=== PATIENT | male | born 1960 | race Caucasian/White ===

== ENCOUNTER 2017-01-08 16:38 | Emergency (ER) | payer OTHER ==
[~2017-01-08] VITALS: Ht 167.6 cm; Wt 99.9 kg
[~2017-01-08 16:38] MED LIST: ONDA4TAB7 SL
[2017-01-08 16:42] VITALS: Ht 167.6 cm; Wt 99.9 kg
[2017-01-08] MEDS ORDERED: SODIUM CHLORIDE 0.9% 1000ML 1,000 ML IV STA ×3 (16:46→18:30)
[2017-01-08] MEDS ORDERED: KETOROLAC TROMETHAMINE 30 MG/ML VIAL IV STA (16:46)
[2017-01-08] MEDS ORDERED: ONDANSETRON INJ 2 MG/ML 2 ML VIAL IV STA (16:46)
[2017-01-08] MEDS ORDERED: RANI300T2 PO ×2 (16:51)
[2017-01-08 17:15] LABS: BASO % 0.1 %; BASO ABS # 0.01 K/uL (0-0.2); COMPLETE YES; EOS % 0.4 %; HEMATOCRIT 48.1 % (42-52); IG% 0.3 %; LYMPH % 7.9 %; MEAN CELL VOLUME 89.2 fL (80-100); MEAN CORPUSCULAR HEMOGLOBIN 31.9 pg (25-34); MEAN CORPUSCULAR HGB CONC 35.8 g/dl (32-36); MEAN PLATELET VOLUME 9.8 fL (7.4-10.4); MONO % 11.4 %; NEUT % 79.9 %; PLATELET COUNT 216 K/uL (130-400); RED BLOOD COUNT 5.39 M/uL (4.7-6.1)
[2017-01-08 17:34] LABS: BUN/CREATININE RATIO 12.3 (10-20); CREATININE 1.4 mg/dl (0.60-1.40); POTASSIUM 3.5 mmol/L (3.5-5.1)
[2017-01-08 17:36] VITALS: TEMP 36.9
[2017-01-08 17:41] LABS: MAGNESIUM 2.2 mg/dl (1.8-2.4)
--- NOTE | 2017-01-08 18:01 | DIAGNOSTIC IMAGING REPORT ---
PA CHEST RADIOGRAPH AND UPRIGHT AND SUPINE AP RADIOGRAPHS OF THE ABDOMEN CLINICAL HISTORY: Vomiting and diarrhea. COMPARISON STUDY: Chest radiograph and CT of the abdomen and pelvis December 07, 2014. FINDINGS: Lung volumes are at the lower limits of normal. There is no pneumothorax or pleural effusion. Pulmonary vascularity is normal. There is no consolidation. Cardiomediastinal silhouette is stable. There is no free air. Numerous loops of mildly dilated small bowel are noted. Multiple small bowel air-fluid levels are noted on the upright projections. There is scattered colonic gas. Pelvic calcifications likely reflect phleboliths. IMPRESSION: 1. Multiple loops of mildly dilated small bowel. The findings favor a partial small bowel obstruction although an ileus could appear similar. 2. No free air. 3. No acute cardiopulmonary findings. Electronically signed by: Dave Bunch M.D. 01/08/2017 5:59 PM Dictated Date/Time: 01/08/2017 5:56 PM
[2017-01-08] MEDS ORDERED: ONDA4TAB10 SL ×3 (18:29→22:42)
[2017-01-08] MEDS ORDERED: ONDANSETRON HOME PACK 4MG OD TAB PO ONE (18:30)
[2017-01-08 18:31] LABS: URINE APPEARANCE CLOUDY (CLEAR); URINE COLOR DK YELLOW; URINE NITRITE NEG (NEG); URINE SPECIFIC GRAVITY 1.029 (1.000-1.030); UROBILINOGEN NEG (NEG); ZZUR CULT IF INDIC CLEAN CATCH YES
[2017-01-08 18:35] LABS: MANUAL MICROSCOPIC REQUIRED? NO; REVIEW REQ? YES; URINE BILIRUBIN NEG (NEG)
[2017-01-08 18:43] LABS: URINE MUCUS PRESENT (NONE PRSENT)
[2017-01-08 19:19] VITALS: BP 128/77; PULSE 80; O2SAT 95
--- NOTE | 2017-01-09 23:58 | EMERGENCY ROOM VISIT NOTE ---
History Report prepared by Cheri: Rhonda Knapp Under the Supervision of: Dr. Karey Evans M.D. First contact with patient: 16:46 Chief Complaint: GI ASSESSMENT Stated Complaint: NAUSEA,VOMITING,DIARRHEA History of Present Illness The patient is a 57 year old male who presents to the Emergency Room with complaints of persistent vomiting starting 2 days ago. He had sudden onset of nausea, vomiting, and diarrhea. He thought the symptoms will resolve after 1 day. Two of the residents at his work place had similar symptoms. Their symptoms started to resolve after 3 days. He is unable to keep any food or water down. He denies any fever, chills, abdominal pain, body aches, or blood in his diarrhea. He denies any other medical problems. Source of History: patient Onset: 2 days ago Position: other (global) Quality: other (vomiting) Timing: other (persistent) Associated Symptoms: + diarrhea, + nausea, No abdominal pain, No chills, No fevers, No hematochezia Note: Pt denies body aches. Review of Systems See HPI for pertinent positives & negatives. A total of 10 systems reviewed and were otherwise negative. Past Medical & Surgical Medical Problems: (1) Ileus (2) Kidney stones (3) Nausea vomiting and diarrhea Surgical Problems: (1) S/P tonsillectomy and adenoidectomy Family History Cancer Diabetes mellitus FH: heart disease FHx: gallbladder disease Hypertension Kidney disease Kidney stones Social History Smoking Status: Never Smoker Alcohol Use: none Marital Status: single Housing Status: lives alone Occupation Status: employed Current/Historical Medications Scheduled PRN Ondasetron Odt (Zofran Odt), 4 MG SL Q6H PRN for Nausea or Vomiting Ranitidine Hcl (Zantac), 300 MG PO DAILY PRN for STOMACH UPSET Allergies Coded Allergies: No Known Allergies (Unverified , 01/08/17) Physical Exam Vital Signs Date Time Temp Pulse Resp B/P Pulse Ox O2 Delivery O2 Flow Rate FiO2 01/08/17 19:19 80 20 128/77 95 01/08/17 18:04 84 130/77 94 01/08/17 17:36 36.9 85 18 01/08/17 17:05 91 01/08/17 16:42 114 24 140/91 96 Room Air Physical Exam Vital signs reviewed. General: Well-appearing, in no significant distress. HEENT: No scleral icterus, PERRLA, neck supple. Atraumatic. Cardiovascular: Regular rate and rhythm, no extra sounds. Pulmonary: Clear to auscultation bilaterally, normal work of breathing. Abdomen: Soft, mildly distended abdomen with diffuse tenderness, no rebound, no guarding, diffuse positive bowel sounds. Musculoskeletal: Atraumatic, no peripheral edema. Neurologic: Patient awake alert and oriented x 3, full strength in all 4 extremities. Cranial nerves 2 through 12 grossly intact. Skin: Warm, dry, no rash Medical Decision & Procedures Laboratory Results 01/08/17 17:00 Red Blood Count 5.39, Mean Corpuscular Volume 89.2, Mean Corpuscular Hemoglobin 31.9, Mean Corpuscular Hemoglobin Concent 35.8, Mean Platelet Volume 9.8, Neutrophils (%) (Auto) 79.9, Lymphocytes (%) (Auto) 7.9, Monocytes (%) (Auto) 11.4, Eosinophils (%) (Auto) 0.4, Basophils (%) (Auto) 0.1, Neutrophils # (Auto ) 6.07, Lymphocytes # (Auto) 0.60, Monocytes # (Auto) 0.87, Eosinophils # (Auto ) 0.03, Basophils # (Auto) 0.01 01/08/17 17:00 Test 01/08/17 00:00 01/08/17 17:00 Stool Occult Blood NEGATIVE (NEGATIVE) White Blood Count 7.60 K/uL (4.8-10.8) Red Blood Count 5.39 M/uL (4.7-6.1) Hemoglobin 17.2 g/dL (14.0-18.0) Hematocrit 48.1 % (42-52) Mean Corpuscular Volume 89.2 fL (80-100) Mean Corpuscular Hemoglobin 31.9 pg (25-34) Mean Corpuscular Hemoglobin Concent 35.8 g/dl (32-36) Platelet Count 216 K/uL (130-400) Mean Platelet Volume 9.8 fL (7.4-10.4) Neutrophils (%) (Auto) 79.9 % Lymphocytes (%) (Auto) 7.9 % Monocytes (%) (Auto) 11.4 % Eosinophils (%) (Auto) 0.4 % Basophils (%) (Auto) 0.1 % Neutrophils # (Auto) 6.07 K/uL (1.4-6.5) Lymphocytes # (Auto) 0.60 K/uL (1.2-3.4) Monocytes # (Auto) 0.87 K/uL (0.11-0.59) Eosinophils # (Auto) 0.03 K/uL (0-0.5) Basophils # (Auto) 0.01 K/uL (0-0.2) RDW Standard Deviation 43.3 fL (36.4-46.3) RDW Coefficient of Variation 13.3 % (11.5-14.5) Immature Granulocyte % (Auto) 0.3 % Immature Granulocyte # (Auto) 0.02 K/uL (0.00-0.02) Urine Color DK YELLOW Urine Appearance CLOUDY (CLEAR) Urine pH 5.0 (4.5-7.5) Urine Specific [place] 1.029 (1.000-1.030) Urine Protein 1+ (NEG) Urine Glucose (UA) NEG (NEG) Urine Ketones TRACE (NEG) Urine Occult Blood NEG (NEG) Urine Nitrite NEG (NEG) Urine Bilirubin NEG (NEG) Urine Urobilinogen NEG (NEG) Urine Leukocyte Esterase NEG (NEG) Urine WBC (Auto) 1-5 /hpf (0-5) Urine RBC (Auto) 0-4 /hpf (0-4) Urine Hyaline Casts (Auto) 10-30 /lpf (0-5) Urine Epithelial Cells (Auto) 10-20 /lpf (0-5) Urine Bacteria (Auto) NEG (NEG) Urine Pathogenic Casts /lpf (0) Urine Mucus PRESENT (NONE PRSENT) Urine Yeast (Auto) (NONE PRSENT) Anion Gap 13.0 mmol/L (3-11) Est Creatinine Clear Calc Drug Dose 64.4 ml/min Estimated GFR () 64.2 Estimated GFR (Non- 55.4 BUN/Creatinine Ratio 12.3 (10-20) Calcium Level 9.0 mg/dl (8.5-10.1) Magnesium Level 2.2 mg/dl (1.8-2.4) Total Bilirubin 1.0 mg/dl (0.2-1) Direct Bilirubin 0.2 mg/dl (0-0.2) Aspartate Amino Transf (AST/SGOT) 25 U/L (15-37) Alanine Aminotransferase (ALT/SGPT) 62 U/L (12-78) Alkaline Phosphatase 93 U/L (45-117) Total Protein 8.0 gm/dl (6.4-8.2) Albumin 4.4 gm/dl (3.4-5.0) Lipase 126 U/L (73-393) Laboratory results per my review. Medications Administered Medications (Trade) Dose Ordered Sig/Malean Route Start Time Stop Time Status Last Admin Dose Admin Sodium Chloride 1,000 ml @ 999 mls/hr Q1H1M STAT IV 01/08/17 16:46 01/08/17 17:46 DC 01/08/17 17:14 999 MLS/HR Sodium Chloride (Nss 1000ml) 1,000 ml @ 200 mls/hr Q5H STAT IV 01/08/17 16:46 01/08/17 18:31 DC 01/08/17 17:15 200 MLS/HR Ketorolac Tromethamine (Toradol Inj) 30 mg NOW STAT IV 01/08/17 16:46 01/08/17 16:48 DC 01/08/17 17:13 30 MG Ondansetron HCl (Zofran Inj) 4 mg NOW STAT IV 01/08/17 16:46 01/08/17 16:48 DC 01/08/17 17:13 4 MG Ondansetron HCl (ZOFRAN ODT 4MG Home Pack) 1 homepack UD ONCE PO 01/08/17 18:30 01/08/17 18:31 DC 01/08/17 19:17 1 HOMEPACK ED Course 1649: Past medical records reviewed. The patient was evaluated in room B6. A complete history and physical examination was performed. 1646: Zofran Inj 4 mg IV, Toradol Inj 30 mg IV, NSS 1000 ml @ 200 mls/hr IV, NSS 1000 ml @ 999 mls/hr IV. Medical Decision Differential diagnosis: Etiologies such as gastroenteritis, food borne illness, infections, appendicitis , diverticulitis, inflammatory bowel disease, obstruction, GI bleed, biliary pathology, as well as others were entertained. This patient was evaluated and appeared to be in some discomfort. IV access was obtained and laboratory work was drawn. The patient was placed on the registered nurse cardiac. Physical examination is concerning for a mildly distended abdomen. He has some tympany to percussion. Abdominal x-ray series was obtained and reveals an ileus versus partial SBO. Patient's laboratory work is fairly unrevealing. The patient was feeling much improved after IV Toradol, IV Zofran and IV normal saline solution 2 L. Patient was discharged with a Zofran ODT home pack and a prescription was sent to his pharmacy. He is asked to follow-up with his primary care physician this week and to return to the ER for worsening of symptoms or any medical concerns. Impression Primary Impression: Nausea vomiting and diarrhea Additional Impression: Ileus Scribe Attestation The scribe's documentation has been prepared under my direction and personally reviewed by me in its entirety. I confirm that the note above accurately reflects all work, treatment, procedures, and medical decision making performed by me. Departure Information Referrals No Doctor, Assigned (PCP) Patient Instructions [facility] Problem Qualifiers
== END 2017-01-08 19:20 | disposition home or self-care (01) ==
LOC: C.EDB 16:39
DX: R11.2 Nausea with vomiting, unspecified (principal); R19.7 Diarrhea, unspecified; K56.7 Ileus, unspecified; Z90.89 Acquired absence of other organs; Z83.3 Family history of diabetes mellitus; Z82.49 Family history of ischemic heart disease and other diseases of the circulatory system; Z84.1 Family history of disorders of kidney and ureter

== ENCOUNTER 2017-01-08 21:41 | Inpatient (IN) | payer OTHER ==
[~2017-01-08] VITALS: Ht 167.6 cm; Wt 100.5 kg
[~2017-01-08 21:41] MED LIST changes: +ONDA4TAB10 SL; +RANI300T2 PO
[2017-01-08] MEDS ORDERED: PROMETHAZINE HCL INJ 6.25 MG in SODIUM CHLORIDE 0.9% 50ML 50 ML IV STA (22:02)
[2017-01-08] MEDS ORDERED: SODIUM CHLORIDE 0.9% 500ML 500 ML IV STA (22:02)
[2017-01-08] MEDS ORDERED: ONDANSETRON INJ 2 MG/ML 2 ML VIAL IV STA (22:02)
[2017-01-08] MEDS ORDERED: SODIUM CHLORIDE 0.9% 1000ML 1,000 ML IV STA (22:02)
--- NOTE | 2017-01-08 22:08 | EMERGENCY ROOM VISIT NOTE ---
History Report prepared by Cheri: Obey Renteria Under the Supervision of: Dr. Manuelito Benitez M.D. First contact with patient: 21:59 Chief Complaint: ABDOMINAL PAIN Stated Complaint: ABD PAIN,PARTIAL BOWEL OBSTRUCTION,REVISIT Nursing Triage Summary: just seen in ed and refused admission because " i felt better." c/o nausea and diarrhea. History of Present Illness The patient is a 57 year old male who presents to the Emergency Room with complaints of worsening abdominal pain that began two days ago. The patient was seen in the ER earlier today for this similar issue. They recommended that he stay in the hospital for a possible small bowel obstruction, but they were okay with him going home secondary to him feeling better after Zofran and fluids. His laboratory results that were taken at 1700 today showed: Normal white count , normal hemoglobin, unremarkable chemistry profile, negative lipase, urine negative for infection, stool negative for blood, stool negative for C-Diff. His x-ray was consistent with an Ileus or a partial small bowel obstruction. He is experiencing significant belching and a swollen feeling in his abdomen. He rates his pain a 4/10 in severity, but he says his nausea is the worst symptom. He denies any fevers. Source of History: patient Onset: two days ago Position: abdomen Symptom Intensity: 4/10 Quality: sharp Timing: worsening Associated Symptoms: + diarrhea, + nausea, No fevers Note: He is having belching and a swollen feeling in his abdomen. Review of Systems See HPI for pertinent positives & negatives. A total of 10 systems reviewed and were otherwise negative. Past Medical & Surgical Medical Problems: (1) Ileus (2) Kidney stones (3) Nausea vomiting and diarrhea Surgical Problems: (1) S/P tonsillectomy and adenoidectomy Family History Cancer Diabetes mellitus FH: heart disease FHx: gallbladder disease Hypertension Kidney disease Kidney stones Social History Smoking Status: Never Smoker Alcohol Use: none Marital Status: single Housing Status: lives alone Occupation Status: employed Current/Historical Medications Scheduled PRN Ondasetron Odt (Zofran Odt), 4 MG SL Q6H PRN for Nausea or Vomiting Ranitidine Hcl (Zantac), 300 MG PO DAILY PRN for STOMACH UPSET Allergies Coded Allergies: No Known Allergies (Unverified , 01/08/17) Physical Exam Vital Signs Date Time Temp Pulse Resp B/P Pulse Ox O2 Delivery O2 Flow Rate FiO2 01/08/17 21:43 36.8 86 20 150/84 99 Room Air Physical Exam GENERAL: Patient is in no acute distress. HEENT: No acute trauma, normocephalic atraumatic, mucous membranes moist, no nasal congestion, no scleral icterus. NECK: No stridor, no adenopathy, no meningismus, trachea is midline. LUNGS: Clear to auscultation bilaterally, no wheeze, no rhonchi, breath sounds equal. HEART: Without murmurs gallops or rubs, regular rate and rhythm. ABDOMEN: Distended, diffusely mildly tender, tympani with percussion, bowel sounds positive, no peritonitis. EXTREMITIES: No cyanosis or edema, full range of motion of all the joints without pain or difficulty, no signs for acute trauma. NEUROLOGIC: Oriented x 3, no acute motor or sensory deficits, no focal weakness. SKIN: No rash, no jaundice, no diaphoresis. Medical Decision & Procedures ER Provider Diagnostic Interpretation: X-ray results as stated below per interpretation by me and the radiologist: ABDOMINAL SERIES CLINICAL HISTORY: Abdominal distention. Diarrhea. COMPARISON STUDY: Abdominal series and chest radiograph January 08, 2017 at 5:42 PM. FINDINGS: Mild small bowel dilatation persists although has slightly improved since exam of January 08, 2017. There is scattered colonic gas. There is a paucity of gas within the descending colon, sigmoid colon and rectum. There is no free air. Multiple bowel air-fluid levels are noted on the upright projections. IMPRESSION: Persistent, but slightly improved, mild small bowel dilatation. Scattered colonic gas. The findings could reflect a partial small bowel obstruction or ileus. No free air. Electronically signed by: Dave Bunch M.D. 01/08/2017 10:51 PM Dictated Date/Time: 01/08/2017 10:48 PM Medications Administered Medications (Trade) Dose Ordered Sig/Malena Route Start Time Stop Time Status Last Admin Dose Admin Ondansetron HCl 4 mg 4 mg NOW STAT IV 01/08/17 22:02 01/08/17 22:04 DC 01/08/17 22:17 4 MG Promethazine HCl 6.25 mg/Sodium Chloride 50.25 ml @ 204 mls/hr NOW STAT IV 01/08/17 22:02 01/08/17 22:16 DC 01/08/17 22:18 204 MLS/HR Sodium Chloride 500 ml @ 999 mls/hr Q31M STAT IV 01/08/17 22:02 01/08/17 22:32 DC 01/08/17 22:02 999 MLS/HR Sodium Chloride (Nss 1000ml) 1,000 ml @ 200 mls/hr Q5H STAT IV 01/08/17 22:02 01/09/17 03:01 01/08/17 22:16 200 MLS/HR ED Course 2158: The patient was evaluated in room C1. A complete history and physical exam was performed. 2201: Ordered Sodium Chloride 1000 ml @ 200 mls/hr IV, Sodium Chloride 500 ml @ 999 mls/hr IV, Promethazine HCl 6.25 mg/ Sodium Chloride 50.25 ml @ 204 mls/hr IV, Zofran Inj 4 mg 2207: Upon reexamination the patient is resting. I discussed results and treatment plan with the patient. He verbalizes agreement and understanding. The patient will be evaluated by Dr. Marlys Godinez, for further management. Medical Decision Differential diagnosis includes but is not limited to partial small bowel obstruction, ileus, dehydration, viral illness, electrolyte imbalance, and failed outpatient treatment. The patient presents back to the emergency room about 4 hours after being discharged. He had findings on x-ray suggestive of an ileus versus partial small bowel obstruction. When he was home, he began feeling worse, more bloated , he did have vomiting. He did not feel he could be at home in this condition so he presents back to the ER. Repeat films of the abdomen show an ileus versus partial small bowel obstruction. Laboratories from earlier today were unremarkable as noted above. The patient received IV saline, he was given IV Zofran and IV Phenergan. Admission/observation is now warranted. I spoke to the patient and case management. The on-call hospitalist was consulted. Consults Time Called: 2204 Consulting Physician: Dr. Marlys Godinez Returned Call: [phone] He will be evaluating the patient for further management. Impression Primary Impression: Vomiting Additional Impressions: Diarrhea Ileus Scribe Attestation The scribe's documentation has been prepared under my direction and personally reviewed by me in its entirety. I confirm that the note above accurately reflects all work, treatment, procedures, and medical decision making performed by me. Departure Information Dispostion Being Evaluated By Hospitalist Referrals Shaila Santos PA (PCP) Patient Instructions My [facility] Problem Qualifiers
[2017-01-08] MEDS ORDERED: ONDA4TAB10 SL ×2 (22:42)
[2017-01-08] MEDS ORDERED: PROMETHAZINE HCL INJ 12.5 MG in SODIUM CHLORIDE 0.9% 50ML 50 ML IV PRN (22:45)
[2017-01-08] MEDS ORDERED: ONDANSETRON INJ 2 MG/ML 2 ML VIAL IV PRN (22:45)
[2017-01-08] MEDS ORDERED: ACETAMINOPHEN 325 MG TAB PO PRN (22:45)
--- NOTE | 2017-01-08 22:45 | History and Physical ---
History & Physical Date & Time of Service: Jan 08, 2017 at 22:36 Chief Complaint: Abd Pain,Partial Bowel Obstruction,Revisit Primary Care Physician: Shaila Santos PA History of Present Illness Source: patient, clinic records, hospital records Patient seen and examined. 57 year old male presents to the ED complaining of nausea, vomiting, and diarrhea x 3 days. Patient reported to the ED earlier today with similar symptoms. KUB showed ileus versus partial SBO. Since patient was having diarrhea he chose to be discharged home as he thought SBO was less likely. He reports he went home and his nausea has worsened and he has become more bloated. He reports he has had vomiting and diarrhea about every half hour. He denies any blood in the stool or vomit. 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 He denies fevers, chills, URI symptoms, chest pain, SOB, dysuria, calf pain and edema. He denies recent Abx history of abdominal surgeries. He denies abdominal pain. In the ED VS are stable, lab work from earlier today was unremarkable. C.diff was negative at that time. Repeat KUB is pending. He received IVFs, and antiemetics. He will be admitted for further workup and treatment. 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[employer] ) Allergies Coded Allergies: No Known Allergies (Unverified , 01/08/17) Home Medications Scheduled PRN Ondasetron Odt (Zofran Odt), 4 MG SL Q6H PRN for Nausea or Vomiting Ranitidine Hcl (Zantac), 300 MG PO DAILY PRN for STOMACH UPSET Review of Systems Constitutional: No chills, No fever Eyes: No worsening of vision ENT: No nasal symptoms Respiratory: No cough, No shortness of breath Cardiovascular: No chest pain, No edema, No palpitations Abdomen: + diarrhea, + nausea, + vomiting, No GI bleeding, No pain Musculoskeletal: No calf pain, No joint pain, No muscle pain, No swelling Genitourinary - Male: No dysuria Neurologic: No numbness/tingling, No vertigo Psychiatric: No anxiety Endocrine: No fatigue Hematologic / Lymphatic: No abnormal bleeding/bruising, No clotting problems Integumentary: No itch, No rash Allergic / Immunologic: No environmental allergies Physical Exam Vital Signs Date Time Temp Pulse Resp B/P Pulse Ox O2 Delivery O2 Flow Rate FiO2 01/08/17 21:43 36.8 86 20 150/84 99 Room Air General Appearance: + pertinent finding (Very pleasant WD/WN 57 year old male lying in bed in NAD ) Head: normocephalic, atraumatic Eyes: PERRL, EOMI, sclerae normal ENT: hearing grossly normal, pharynx normal Neck: supple, no JVD Respiratory/Chest: chest non-tender, lungs clear, normal breath sounds, no respiratory distress, no accessory muscle use Cardiovascular: regular rate, rhythm, no edema, no gallop, no JVD, no murmur, normal peripheral pulses Abdomen/GI: normal bowel sounds, non tender, soft Back: normal inspection, no CVA tenderness Extremities/Musculoskelatal: no calf tenderness, normal capillary refill, no pedal edema Neurologic/Psych: no motor/sensory deficits, alert, oriented x 3 Skin: normal color, warm/dry, no rash Lymphatic: no adenopathy Impression Assessment and Plan 57 year old male returns to the ED for increased nausea, vomiting, diarrhea following initial evaluation earlier today. Workup this morning: KUB ileus versus partial SBO, no leukocytosis, lipase normal, c. diff negative, no fecal occult blood INTRACTABLE NAUSEA, VOMITING, DIARRHEA -Admit to med/surg -? cause, ileus versus SBO, versus gastroenteritis -stool culture from earlier pending -repeat KUB pending -keep npo -IVF hydration -antiemetics prn -CBC, PRP, Mg in AM HTN -controlled by lifestyle modifications -running slightly high this evening, likely situational -monitor per routine DVT PROPHYLAXIS: Sq heparin CODE STATUS: FULL CODE DISPO:In my clinical judgment this beneficiary meets acute admission criteria, established by [facility], that includes being hospitalized through two midnights. Patient seen in collaboration with Dr. 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 Also reports feeling bloated and has minimal periumbilical abdominal pain. Stool for C.diff is negative. KUB is suggestive of partial SBO or ileus. He denies any history of abdominal surgeries. 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 Physical Exam: Vitals signs as noted above General Appearance:Obese, no apparent distress Head: normocephalic, Atraumatic Eyes: normal inspection, EOMI, PERRL Neck: supple, Trachea midline Respiratory/Chest: Normal breath sounds, CTA, No accessory muscle use Cardiovascular: S1, S2, No murmur Abdomen/GI:Soft, Mild periumbilical tender, Bowel sounds present Extremities/Musculoskelatal:normal inspection, no edema Neurologic/Psych:AAOX3, grossly no focal neurological deficits Skin:normal color,warm Assessment and Plan: Nausea/Vomiting/Diarrhea: Likely Viral gastroenteritis KUB: Possible partial SBO, Ilues NPO for now IV fluids Zofran PRN Stool: negative for c.diff No signs of sepsis I personally reviewed the record. Patient is interviewed and examined at bedside. Patient's care is coordinated with Desiree Mora PA-C. Please refer to the documentation above for details of patient's presentation and for discussion of other issues. VTE Prophylaxis VTE Risk Assessment Done? Y/N: Yes Risk Level: Moderate
--- NOTE | 2017-01-08 22:53 | DIAGNOSTIC IMAGING REPORT ---
ABDOMINAL SERIES CLINICAL HISTORY: Abdominal distention. Diarrhea. COMPARISON STUDY: Abdominal series and chest radiograph January 08, 2017 at 5:42 PM. FINDINGS: Mild small bowel dilatation persists although has slightly improved since exam of January 08, 2017. There is scattered colonic gas. There is a paucity of gas within the descending colon, sigmoid colon and rectum. There is no free air. Multiple bowel air-fluid levels are noted on the upright projections. IMPRESSION: Persistent, but slightly improved, mild small bowel dilatation. Scattered colonic gas. The findings could reflect a partial small bowel obstruction or ileus. No free air. Electronically signed by: Dave Bunch M.D. 01/08/2017 10:51 PM Dictated Date/Time: 01/08/2017 10:48 PM
[2017-01-08 23:52] VITALS: BP 126/78; PULSE 62; TEMP 36.8; O2SAT 96; Ht 167.6 cm; Wt 100.5 kg
[2017-01-09] MEDS: NSS + 20MEQ KCL 1000ML 1,000 ML IV SCH ×3 (00:49→15:49)
[2017-01-09 06:59] LABS: HEMATOCRIT 42.2 % (42-52); MEAN CELL VOLUME 90.4 fL (80-100); MEAN CORPUSCULAR HEMOGLOBIN 31.5 pg (25-34); MEAN CORPUSCULAR HGB CONC 34.8 g/dl (32-36); PLATELET COUNT 181 K/uL (130-400); RED BLOOD COUNT 4.67 M/uL (4.7-6.1); WHITE BLOOD COUNT 4.98 K/uL (4.8-10.8)
[2017-01-09 07:11] LABS: PROTHROMBIN TIME (PATIENT) 11.1 SECONDS (9.0-12.0)
[2017-01-09 07:38] LABS: BUN/CREATININE RATIO 13.5 (10-20); CALCIUM 7.9 mg/dl (8.5-10.1); CREATININE 1.2 mg/dl (0.60-1.40); POTASSIUM 3.4 mmol/L (3.5-5.1)
[2017-01-09] MEDS: HEPARIN SOD 5000 UNIT/0.5 ML CARP SQ SCH ×2 (08:52→15:48)
[2017-01-09 09:34] VITALS: BP 120/71; PULSE 84; TEMP 37.3; O2SAT 95
--- NOTE | 2017-01-09 11:37 | Progress Note ---
Medicine Progress Note Date & Time of Visit: January 09, 2017 at 11:22. Subjective Pt was seen and examined Lying in bed with no acute respiratory distress Pt said that he still feels nauseated, but no vomiting He said that he continues to have watery diarrhea His abdominal pain slightly improved Denies any chest pain, palpitation and SOB Objective Last 8 Hrs Date Time Temp Pulse Resp B/P Pulse Ox O2 Delivery O2 Flow Rate FiO2 01/09/17 09:34 37.3 84 18 120/71 95 Room Air 01/09/17 08:00 Room Air Physical Exam: General- No acute distress Head- atraumatic Eyes- PERRL, EOMI ENT- oropharynx clear Neck- supple, no JVD Lungs- clear to auscultation and percussion Heart- regular rhythm; no murmur Abdomen- hyperactive bowel sounds, +epigastric tender, no distention Extremities- no pretibial edema, no calf tenderness Neuro- alert, oriented x 3; PERRL, EOMI; no facial palsy; no dysarthria Skin- warm & dry Laboratory Results: Last 24 Hours Test 01/09/17 06:30 White Blood Count 4.98 K/uL Red Blood Count 4.67 M/uL Hemoglobin 14.7 g/dL Hematocrit 42.2 % Mean Corpuscular Volume 90.4 fL Mean Corpuscular Hemoglobin 31.5 pg Mean Corpuscular Hemoglobin Concent 34.8 g/dl RDW Standard Deviation 45.0 fL RDW Coefficient of Variation 13.6 % Platelet Count 181 K/uL Mean Platelet Volume 10.0 fL Prothrombin Time 11.1 SECONDS Prothromb Time International Ratio 1.0 Sodium Level 145 mmol/L Potassium Level 3.4 mmol/L Chloride Level 114 mmol/L Carbon Dioxide Level 22 mmol/L Anion Gap 9.0 mmol/L Blood Urea Nitrogen 16 mg/dl Creatinine 1.20 mg/dl Est Creatinine Clear Calc Drug Dose 75.4 ml/min Estimated GFR () 77.3 Estimated GFR (Non- 66.7 BUN/Creatinine Ratio 13.5 Random Glucose 88 mg/dl Calcium Level 7.9 mg/dl Magnesium Level 2.0 mg/dl Assessment & Plan NAUSEA, VOMITING, DIARRHEA ASSOCIATED WITH ABDOMINAL PAIN - Possible related to viral etiology vs ileus vs partial SBO -stool culture on 01/08 negative for C-diff -Repeat Abd Xray showed Persistent, but slightly improved, mild small bowel dilatation. Scattered colonic gas. -Continue IVF and pain control -Will monitor electrolytes - Started on clear liquid diet and advanced to full liquid - Tolerated full liquid diet - Symptoms clinically improved - Wants to go home HTN -controlled by lifestyle modifications -Stable -Continue monitor BP HYPOKALEMIA K replaced monitor electrolytes DVT PROPHYLAXIS: Sq heparin CODE STATUS: FULL CODE DISPOSITION Will discharge home if clinically improves Call your PCP to schedule a follow appointment Current Inpatient Medications: Current Inpatient Medications Medications (Trade) Dose Ordered Sig/Malena Route Start Time Stop Time Status Last Admin Dose Admin Heparin Sodium (Porcine) (Heparin Sq 5000 Unit/0.5ml) 5,000 unit Q8 SQ 01/09/17 08:00 02/08/17 07:59 01/09/17 08:52 5,000 UNIT Acetaminophen (Tylenol Tab) 650 mg Q4H PRN PO 01/08/17 22:45 02/07/17 22:44 Ondansetron HCl 4 mg 4 mg Q6H PRN IV 01/08/17 22:45 02/07/17 22:44 01/09/17 04:26 4 MG Potassium Chloride/Sodium Chloride 1,000 ml @ 125 mls/hr Q8H IV 01/09/17 00:30 02/08/17 00:29 01/09/17 08:09 125 MLS/HR Promethazine HCl/ Sodium Chloride (Phenergan Inj/ Nss 50ml) 50.5 ml @ 204 mls/hr Q6H PRN IV 01/08/17 22:45 02/07/17 22:44 01/09/17 07:49 204 MLS/HR
[2017-01-09 15:46] VITALS: BP 120/71; PULSE 79; TEMP 36.8; O2SAT 95
[2017-01-09 19:12] VITALS: BP 120/71; PULSE 79; TEMP 36.8; O2SAT 95
--- NOTE | 2017-01-09 19:22 | Discharge Instructions ---
Discharge Instructions Date of Service January 09, 2017. Admission Reason for Admission: Ileus; Nausea Vomiting And Diarrhea Discharge Discharge Diagnosis / Problem: Gastroenteritis (Nausea/Vomiting/Diarrhea) Discharge Goals Goal(s): Decrease discomfort, Improve function, Improve disease control Activity Recommendations Activity Limitations: resume your previous activity (as tolerated) . Instructions / Follow-Up Instructions / Follow-Up Schedule a Follow up appointment with your Primary Care Provider Continue full liquid diet and advanced as tolerated Current Hospital Diet Patient's current hospital diet: Full Liquid Diet Discharge Diet Recommended Diet: Full Liquid Diet Pending Studies Studies pending at discharge: no Medical Emergencies . Who to Call and When: Medical Emergencies: If at any time you feel your situation is an emergency, please call 911 immediately. . Non-Emergent Contact Non-Emergency issues call your: Primary Care Provider Call Non-Emergent contact if: you have a fever, your pain is worsening, your pain is concerning you . . "Provider Documentation" section prepared by Gerhard Salcedo. . VTE Core Measure Inpt VTE Proph given/why not?: Unfractionated heparin SQ
--- NOTE | 2017-01-10 12:46 | Discharge Summary ---
Discharge Summary Date of Service January 10, 2017. Discharge Summary Admission Date: Jan 08, 2017 at 22:33 Discharge Date: January 09, 2017 Discharge Disposition: Home Principal Diagnosis: Gastroenteritis Secondary Diagnoses/Problems: HTN Hypokalemia Procedures: [~ rep ct add3]] ABDOMINAL SERIES CLINICAL HISTORY: Abdominal distention. Diarrhea. COMPARISON STUDY: Abdominal series and chest radiograph January 08, 2017 at 5:42 PM. FINDINGS: Mild small bowel dilatation persists although has slightly improved since exam of January 08, 2017. There is scattered colonic gas. There is a paucity of gas within the descending colon, sigmoid colon and rectum. There is no free air. Multiple bowel air-fluid levels are noted on the upright projections. IMPRESSION: Persistent, but slightly improved, mild small bowel dilatation. Scattered colonic gas. The findings could reflect a partial small bowel obstruction or ileus. No free air. Electronically signed by: Dave Bunch M.D. 01/08/2017 10:51 PM Dictated Date/Time: 01/08/2017 10:48 PM Medication Reconciliation Continued Medications: Ondasetron Odt (Zofran Odt) 4 Mg Tab 4 MG SL Q6H PRN for Nausea or Vomiting, #6 TAB Ranitidine Hcl (Zantac) 300 Mg Tab 300 MG PO DAILY PRN for STOMACH UPSET, TAB Admission Information HPI (per Admitting provider): Patient seen and examined. 57 year old male presents to the ED complaining of nausea, vomiting, and diarrhea x 3 days. Patient reported to the ED earlier today with similar symptoms. KUB showed ileus versus partial SBO. Since patient was having diarrhea he chose to be discharged home as he thought SBO was less likely. He reports he went home and his nausea has worsened and he has become more bloated. He reports he has had vomiting and diarrhea about every half hour. He denies any blood in the stool or vomit. 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 He denies fevers, chills, URI symptoms, chest pain, SOB, dysuria, calf pain and edema. He denies recent Abx history of abdominal surgeries. He denies abdominal pain. In the ED VS are stable, lab work from earlier today was unremarkable. C.diff was negative at that time. Repeat KUB is pending. He received IVFs, and antiemetics. He will be admitted for further workup and treatment. Physical Exam (per Admitting): General Appearance: + pertinent finding (Very pleasant WD/WN 57 year old male lying in bed in NAD ) Head: normocephalic, atraumatic Eyes: PERRL, EOMI, sclerae normal ENT: hearing grossly normal, pharynx normal Neck: supple, no JVD Respiratory/Chest: chest non-tender, lungs clear, normal breath sounds, no respiratory distress, no accessory muscle use Cardiovascular: regular rate, rhythm, no edema, no gallop, no JVD, no murmur , normal peripheral pulses Abdomen/GI: normal bowel sounds, non tender, soft Back: normal inspection, no CVA tenderness Extremities/Musculoskelatal: no calf tenderness, normal capillary refill, no pedal edema Neurologic/Psych: no motor/sensory deficits, alert, oriented x 3 Skin: normal color, warm/dry, no rash Lymphatic: no adenopathy Hospital Course NAUSEA, VOMITING, DIARRHEA ASSOCIATED WITH ABDOMINAL PAIN - Possible related to viral etiology vs ileus vs partial SBO -stool culture on 01/08 negative for C-diff -Repeat Abd Xray showed Persistent, but slightly improved, mild small bowel dilatation. Scattered colonic gas. -Continue IVF and pain control -Will monitor electrolytes - Started on clear liquid diet and advanced to full liquid - Tolerated full liquid diet - Symptoms clinically improved - Wants to go home HTN -controlled by lifestyle modifications -Stable -Continue monitor BP HYPOKALEMIA K replaced monitor electrolytes DVT PROPHYLAXIS: Sq heparin CODE STATUS: FULL CODE DISPOSITION Will discharge home if clinically improves Call your PCP to schedule a follow appointment Total time spent on discharge = 35 minutes This includes examination of the patient, discharge planning, medication reconciliation, and communication with other providers. Discharge Instructions Discharge Instructions Date of Service January 09, 2017. Admission Reason for Admission: Illeus; Nausea Vomiting And Diarrhea Discharge Discharge Diagnosis / Problem: Gastroenteritis (Nausea/Vomiting/Diarrhea) Discharge Goals Goal(s): Decrease discomfort, Improve function, Improve disease control Activity Recommendations Activity Limitations: resume your previous activity (as tolerated) . Instructions / Follow-Up Instructions / Follow-Up Schedule a Follow up appointment with your Primary Care Provider Continue full liquid diet and advanced as tolerated Current Hospital Diet Patient's current hospital diet: Full Liquid Diet Discharge Diet Recommended Diet: Full Liquid Diet Pending Studies Studies pending at discharge: no Medical Emergencies . Who to Call and When: Medical Emergencies: If at any time you feel your situation is an emergency, please call 911 immediately. . Non-Emergent Contact Non-Emergency issues call your: Primary Care Provider Call Non-Emergent contact if: you have a fever, your pain is worsening, your pain is concerning you . . "Provider Documentation" section prepared by Gerhard Salcedo. . VTE Core Measure Inpt VTE Proph given/why not?: Unfractionated heparin SQ Additional Copies To Shaila Santos PA
== END 2017-01-09 19:40 | disposition home or self-care (01) | DRG 392 ==
LOC: ENRESERVTM → ENRESERVDT → C.EDB 21:41 → C.MS4W 22:33
PROVIDERS: ADMIT Internal Medicine; ATTEND Internal Medicine
DX: K52.9 Noninfective gastroenteritis and colitis, unspecified (principal); B34.9 Viral infection, unspecified; E87.6 Hypokalemia; I10 Essential (primary) hypertension